=== PATIENT | female | born 1995 | race African-American/Black ===

== ENCOUNTER 2024-06-19 09:01 | Day surgery (SDC) | payer OTHER ==
[2024-06-15 13:10] VITALS: BMI 25.1
[2024-06-19] MEDS ORDERED: PROPOFOL 100 ML ONE (10:18)
[2024-06-19 10:59] VITALS: RESP 16; TEMP 97.5
[2024-06-19 11:17] VITALS: BP 101/73; PULSE 82
== END 2024-06-19 11:25 | disposition home or self-care (01) ==
LOC: FASU-ENDO 09:01
PROVIDERS: ATTEND Internal Medicine Gastroenterology
PROC: 0DB68ZX Excision of Stomach, Via Natural or Artificial Opening Endoscopic, Diagnostic (ICD-10-PCS; 2024-06-19)
PROC: 0DB98ZX Excision of Duodenum, Via Natural or Artificial Opening Endoscopic, Diagnostic (ICD-10-PCS; principal; 2024-06-19 10:20)
DX: K29.50 Unspecified chronic gastritis without bleeding (principal)
CPT/HCPCS: 81025; 88305-TC; 88342-TC